=== PATIENT | male | born 1985 | race African-American/Black ===

== ENCOUNTER 2022-01-13 17:57 | Emergency (ER) | payer OTHER, MEDICAID ==
[2022-01-13 18:08] VITALS: BP_SYST 123
[2022-01-13] MEDS ORDERED: IBUP-1971 PO (19:49)
[2022-01-13] MEDS ORDERED: SOM350 PO (19:49)
[2022-01-13 20:02] VITALS: BP_SYST 123
== END 2022-01-13 20:02 | disposition home or self-care (01) ==
LOC: SED 17:57
DX: S13.9XXA Sprain of joints and ligaments of unspecified parts of neck, initial encounter (principal); S33.5XXA Sprain of ligaments of lumbar spine, initial encounter; R07.89 Other chest pain; Z79.899 Other long term (current) drug therapy; V49.29XA Unspecified car occupant injured in collision with other motor vehicles in nontraffic accident, initial encounter; Y93.89 Activity, other specified; Y92.488 Other paved roadways as the place of occurrence of the external cause; Y99.8 Other external cause status
CPT/HCPCS: 71045; 72040-TC; 72100-TC; 99284

== ENCOUNTER 2024-08-09 17:09 | Emergency (ER) | payer SELFPAY ==
[~2024-08-09] VITALS: Ht 182.9 cm; Wt 97.5 kg
[~2024-08-09 17:09] MED LIST: IBUP-1971 PO; SOM350 PO
[2024-08-09 17:38] VITALS: BP_SYST 158; PULSE 103; RESP 18; TEMP 98.7; O2SAT 97
[2024-08-09] MEDS ORDERED: AUG875 PO (19:25)
[2024-08-09 19:30] VITALS: BP_SYST 155; PULSE 99; RESP 18; TEMP 98.7; O2SAT 97
== END 2024-08-09 19:30 | disposition home or self-care (01) ==
LOC: SED 17:09
DX: J02.9 Acute pharyngitis, unspecified (principal); R50.9 Fever, unspecified; R05.9 Cough, unspecified; Z79.899 Other long term (current) drug therapy
CPT/HCPCS: 99283